=== PATIENT | female | born 1995 ===

== ENCOUNTER 2017-12-31 11:04 | Emergency (ER) | payer OTHER ==
[2017-12-31 11:43] VITALS: BMI 39.8
--- NOTE | 2017-12-31 14:47 | OBHP ---
Datetime: 12/31/2017 11:49 IP Adm Impression: , intrauterine IP Admit Plan: Observation/Evaluation Admit Comment, IP Provider: 22yo at 35wks - Decreased Movements stable and afebrile (+) movements- pt reassured BPP 8/8 NST FLORY Has f/u appt on 01/12/18 with clinic kick count instructions given DC home FGagandeep Hager D.OGagandeep Pelvic Type - PN: Adequate Extremities - PN: Normal Abdomen - PN: Normal Back - PN: Normal Breast - PN: Normal Lungs - PN: Normal Heart - PN: Normal Thyroid - PN: Normal Neurologic - PN: Normal HEENT - PN: Normal General - PN: Normal FHR - Baseline A Provider: 140 Comments, ACOG Physical Exam: Abd: soft, non-tender Pelvic: deferred EGA AdmitDate IP: 35.0 Vital Signs Provider: Reviewed; Within Normal Limits Vital Signs Provider Details: Grossly WNL, Tachy during encounter at 115bpm IP Chief Complaint: Decreased movement NICHD Variability Prov Fetus A: Moderate 6-25bpm NICHD Accel Fetus A IP Provider: 15X15 FHR Category Provider Fetus A: Category I NICHD Decel Fetus A IP Provider: None Genitourinary Exam: Normal DTRs - PN: Normal
--- NOTE | 2017-12-31 14:50 | US ---
Date of service: 12/31/2017 PROCEDURE: OB Pelvic Ultrasound HISTORY: Chief complaint of Decreased movement COMPARISON: None available. FINDINGS: UTERUS: Single Live intrauterine fetus in cephalic presentation. BPD: 9.34 cm corresponding to 38 weeks and 0 day of gestational age. HC: 33.26 cm corresponding to 38 weeks and 0 day of gestational age. AC: 32.38 cm corresponding to 36 weeks and 2 days of gestational age. FL: 7.14 cm corresponding to 36 weeks and 4 days of gestational age. Gestational sac diameter equivalent to wks/days gestation age (Ultrasound estimated): 37 weeks and 2 days Date of delivery (Ultrasound estimated) : 01/19/2018 Heart rate: 142 bpm. Paula-gestational hemorrhage: None. Placenta is fundal and anterior. CERVIX: Long and closed. Cervical length measures 3.1 cm. RIGHT OVARY: Not visualized. LEFT OVARY: Not visualized. FREE FLUID: None. OTHER FINDINGS: Biophysical profile score: breathin body movements: 2 Tone: 2 Amniotic Fluid: 2 Total score: 8/8 IMPRESSION: 1. Single live intrauterine fetus in cephalic presentation with mean gestational age of 37 weeks and 2 days. The estimated date of delivery by ultrasound is 01/19/2018. Placenta is fundal and anterior. Cervix is closed. Please note this is a limited OB ultrasound performed on an emergent basis. Clinical follow-up is advised. 2. Biophysical profile score is 8/8 and within normal limits.
--- NOTE | 2017-12-31 14:52 | OBDCSUM ---
Datetime: 12/31/2017 14:28 Discharged to, Provider: Home Follow up at, Provider: [facility] Disch Instr Activity: Normal activity Disch Instr Diet: Regular Discharge Instructions, Provider: Routine instructions given Discharge Time: 12/31/2017 14:29 Follow up in weeks, Provider: 01/12/2018 Disch Referrals: None Contraception discussed, Prov: No Discharge Comment, Provider: Pt presented to L_D for decreased movements. On assessment, Pt be jason to feel movements. BPP 09/29 NST FLORY. kick count instructions given. Pt to f/u with sc heduled clinic appt 01/12. Discharge Diagnosis Prov Other: decreased movements- resolved
--- NOTE | 2017-12-31 14:55 | OBHP ---
Datetime: 12/31/2017 11:49 Admit Comment, IP Provider: 22yo at 35wks EDC: 02/04/18 presents for decreased FM x 1 day. Pt s tates she now feels the baby moving. (-) LOF (-) VB (-) CTX PMHx: denies PSHX: denies ALL: NKDA Meds: PNV SHX: denies alcohol, tobacco, illicit drug use FHX: father- DM SVE: deferred EFM: 140s, moderate variability (+) accels (-) decels TOCO: quiet A/P: 22yo at 35wks- Decreased movements 1) Pt reassured- feeling baby move at this time 2) BPP/NST in progress 3) FKK instructions given 4) Continue to monitor
[2017-12-31 18:54] VITALS: BP 127/79; PULSE 116; RESP 20; TEMP 99; O2SAT 98
== END 2017-12-31 14:40 | disposition home or self-care (01) ==
LOC: C.EROB 11:04
DX: O36.8130 Decreased fetal movements, third trimester, not applicable or unspecified (principal); Z3A.35 35 weeks gestation of pregnancy

== ENCOUNTER 2018-02-02 07:06 | Inpatient (IN) | payer OTHER ==
[2018-02-02 08:31] VITALS: BMI 33.3
[2018-02-02 08:55] LABS: SQUAMOUS EPITHIAL 36 /hpf (0-5); URINE BACTERIA OCC (<OCC); URINE BILIRUBIN NEGATIVE (NEGATIVE); URINE BLOOD 3+ (NEGATIVE); URINE CLARITY Hazy (Clear); URINE COLOR Amber (YELLOW); URINE GLUCOSE (UA) NORMAL (Normal); URINE LEUKOCYTE ESTERASE 2+ Leu/uL (Negative); URINE PROTEIN 2+ mg/dL (NEGATIVE)
[2018-02-02 10:06] LABS: BASO % 0.5 % (0.0-2.0); EOS # 0.1 K/uL (0.0-0.7); EOS % 1.2 % (0.0-4.0); HEMOGLOBIN 11.4 g/dL (11.0-16.0); LYMPH # 1.5 K/uL (1.0-4.3); LYMPH % 16.5 % (20.0-40.0); MEAN CELL VOLUME 93.9 fL (81.0-99.0); MEAN CORPUSCULAR HEMOGLOBIN 31.3 pg (27.0-31.0); MEAN CORPUSCULAR HGB CONC 33.4 g/dL (33.0-37.0); MEAN PLATELET VOLUME 9.8 fL (7.2-11.7); MONO % 10.8 % (0.0-10.0); NEUT # 6.3 K/uL (1.8-7.0); RBC 3.65 Mil/uL (3.80-5.20); RED CELL DISTRIBUTION WIDTH 13.9 % (11.5-14.5); WHITE BLOOD COUNT 8.9 K/uL (4.8-10.8)
[2018-02-02 10:24] LABS: ALB/GLOB RATIO 1.1 (1.0-2.1); ALBUMIN 3.7 g/dL (3.5-5.0); ALT/SGPT 14 U/L (9-52); AST/SGOT 20 U/L (14-36); BLOOD UREA NITROGEN 6 mg/dL (7-17); CALCIUM 8.9 mg/dl (8.6-10.4); GFR NON-AFRICAN AMERICAN > 60; URIC ACID 4.5 mg/dL (2.2-7.5)
[2018-02-02 10:56] LABS: HEPATITIS B SURFACE AG Negative (NEGATIVE)
--- NOTE | 2018-02-02 13:08 | OBADHP ---
Datetime: 02/02/2018 10:40 Admit Comment, IP Provider: 22 year old female at 39.4 dated via LMP on 05/02/17 with ALYSSA of who presents to [facility] for contractions every 6-7 minutes that began at 1 am associated with hermelindo r and blood tinged discharge. Patient reports adequate movement. Denies any additional vaginal bleeding. Denies fever, chills, nausea, vomiting, change in vision, upper abdominal pain, and hand sw elling. She does admit to swelling in her nose throughout . 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 Denies hx of STDs, fibroids or cysts. Last coitus was on 04/24 03/11. PMHx: Denies PSHx: Denies Medications: PNV Allergies: NKDA Family Hx: Mother: 48, living, no PMHx; Father- 69, living, hx of DM. No family hx of breast, cerv ical, uterine or ovarian cancer. Social Hx: Patient denies tobacco, alcohol and drug use during . 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 Lives with parents and sister. She is in a relationship with the ba by's father, however he lives in [facility] Assessment and Plan: -Nitrazine positive/ SROM -Gestational Hypertension -Admit to unit -Admission and PIH Labs -Initiate labor Augmentation -Start fluids -Misoprostol 50mcg PO Q4H -Anticipate vaginal delivery Case discussed with Dr. Burnette. An Velázquez, PGY-1. Extremities - PN: Normal Abdomen - PN: Normal Breast - PN: Not Done Lungs - PN: Normal Heart - PN: Normal Neurologic - PN: Normal HEENT - PN: Normal General - PN: Normal FHR - Baseline A Provider: 140 Amniotic Fluid Color, Provider: Clear Membranes, Provider: Ruptured Contraction Comments Provider: yes Comments, ACOG Physical Exam: Abdomen: Gravid, non-tender, normal bowel sounds. Uterine fundus is at 38 cm Gestation - Est Wks by US: 39.4 Nitrazine Provider: Positive IP Hx Assessment: records available and reviewed Vital Signs Provider: Reviewed Vital Signs Provider Details: BP: 138/86 IP Chief Complaint: Uterine contractions; Suspected ruptured membranes NICHD Variability Prov Fetus A: Moderate 6-25bpm NICHD Accel Fetus A IP Provider: 15X15 FHR Category Provider Fetus A: Category I NICHD Decel Fetus A IP Provider: None Dilatation, Provider: 1 Effacement, Provider: 60 Station, Provider: -3 EGA AdmitDate IP: 39.4 IP Adm Impression: Term, intrauterine ; Ruptured Membranes IP Admit Plan: Admit to unit; Initiate labor augmentation protocol Datetime: 12/31/2017 11:49 Pelvic Type - PN: Adequate Back - PN: Normal Thyroid - PN: Normal Genitourinary Exam: Normal DTRs - PN: Normal
[2018-02-02] MEDS ORDERED: Bupivacaine HCl/FentaNYL Cit 100 ML EPI ONE (14:05)
--- NOTE | 2018-02-02 15:24 | OBPN ---
Datetime: 02/02/2018 14:00 IP Progress Impression: Normal progression of labor IP Informed Consent Obtain: Vaginal Delivery IP Procedures: Sterile Vag Exam IP Progress Plan: Continue present management Membranes, Provider: Ruptured Amniotic Fluid Color, Provider: Clear Contraction Comments Provider: yes, irregular FHR - Baseline A Provider: 140 Gestation - Est Wks by US: 39.4 IP Progress Note Comment: Patient uncomfortable, complaining of lower back pain and lower abdominal pain. Vaginal exam performed: 1-//-3 Requesting an Epidural. Assessment and Plan: B/P's midly elevated. NO BRUNO, BV or EP PIH labs all WNL P/C Ratio 0.037 and normal GHTN Stableg Anesthesia consult for epidural Continue present management. Anticipate a vaginal delivery Case discussed with Dr. Burnette. An Velázquez, PGY-1. Vital Signs Provider: Reviewed Vital Signs Provider Details: BP 143/80 and patient asymptomatic NICHD Accel Fetus A IP Provider: 15X15 FHR Category Provider Fetus A: Category I NICHD Variability Prov Fetus A: Moderate 6-25bpm Dilatation, Provider: 1-2 Effacement, Provider: 70 Station, Provider: -3 NICHD Decel Fetus A IP Provider: None Datetime: 02/02/2018 10:40 Nitrazine Provider: Positive
[2018-02-02] MEDS ORDERED: Oxytocin 30 UNIT 30 UNITS/500 ML BAG IV ONE (16:58)
[2018-02-02] MEDS ORDERED: Oxytocin 30 UNIT 30 UNITS/500 ML BAG IV SCH (17:30)
[2018-02-02] MEDS ORDERED: Oxycodone/Acetaminophen 5/325 mg Tab PO PRN ×2 (22:54)
[2018-02-03 08:52] LABS: BASO % 0.3 % (0.0-2.0); EOS # 0.1 K/uL (0.0-0.7); EOS % 0.5 % (0.0-4.0); HEMOGLOBIN 10.1 g/dL (11.0-16.0); LYMPH # 1.7 K/uL (1.0-4.3); LYMPH % 12.3 % (20.0-40.0); MEAN CELL VOLUME 93.8 fL (81.0-99.0); MEAN CORPUSCULAR HGB CONC 33.1 g/dL (33.0-37.0); MEAN PLATELET VOLUME 9.4 fL (7.2-11.7); MONO # 1.1 K/uL (0.0-0.8); MONO % 7.9 % (0.0-10.0); NEUT # 11.2 K/uL (1.8-7.0); RBC 3.25 Mil/uL (3.80-5.20); RED CELL DISTRIBUTION WIDTH 14.2 % (11.5-14.5)
[2018-02-03 08:53] LABS: WHITE BLOOD COUNT 14.1 K/uL (4.8-10.8)
--- NOTE | 2018-02-03 17:23 | OBPPN ---
Datetime: 02/03/2018 07:32 PP Pain Prov: Within normal limits PP Nausea Prov: Denies PP Flatus Prov: No PP BM Prov: No PP Breasts Prov: Not Done PP Heart Prov: Normal PP Lungs Prov: Normal PP Abdomen/Uterus Prov: Normal PP Lochia Prov: Normal PP Vulva/Perineum Prov: Not Done PP CVA Tenderness Prov: Not Done PP Extremities Prov: Normal PP C/S Incision Prov: Not Applicable PP Progress Prov: Normal PP Comments Phys Exam Prov: Abdomen: soft, non-tender, uterine fundus 2 finger breadths above umbili cus PP Impression Prov: Normal progression PP Plan Prov: Continue present management PP Progress Note Prov: 22 year old female PPD#1 s/p NVD. [facility]. She states she feels well and complains only of mild soreness to epidural area and mild lower abdominal cramping. She has not taken pain medication. She reports vaginal bleeding. She is solely br east feeding. She is walking and voiding without issues. Denies flatus and bowel movement. Patient de nies fever, chills, nausea, vomiting, generalized swelling, upper abdominal pain, and change in visio n. Assessment and Plan: 22 year old female PPD#1 s/p NVD Hx of gestational HTN, BP 128-121/70-79, stable Motrin for pain management as needed Continue PNV Continue regular diet Encourage hydration and ambulation for constipation Case discussed with Dr. Ying. An Velázquez, PGY-1. Attending Note: patient seen, evaluated and examined by me with the Resident. I agree with the abo ve. - PPD#1 H/H 10.1/30.5. Patient is asymptomatic and hemodynamically stable. Will start iron supplem entaiton. Otherwise, clinically stable. Plan: 1) as above. 2) Anticipate discharge home 02/04/18 IP PP Procedures: None Vital Signs Provider PP: Reviewed; Within Normal Limits
[2018-02-04 09:26] VITALS: BP 119/79; PULSE 88; RESP 18; TEMP 97.8; O2SAT 98
[2018-02-04] MEDS ORDERED: Influenza Vaccine 60 MCG/0.5 ML SYR (3 yr & up) IM ONE (10:00)
--- NOTE | 2018-02-04 15:32 | OBPPN ---
Datetime: 02/04/2018 07:46 PP Pain Prov: Within normal limits PP Nausea Prov: Denies PP Flatus Prov: Yes PP BM Prov: Yes PP Breasts Prov: Not Done PP Heart Prov: Normal PP Lungs Prov: Normal PP Abdomen/Uterus Prov: Normal PP Lochia Prov: Normal PP Vulva/Perineum Prov: Not Done PP CVA Tenderness Prov: Not Done PP Extremities Prov: Normal PP C/S Incision Prov: Not Applicable PP Progress Prov: Normal PP Comments Phys Exam Prov: Abdomen: Soft, non-tender, fundus firm at 2 finger breadths below umbili cus PP Impression Prov: Normal progression PP Plan Prov: Discharge PP Progress Note Prov: Patient PPD#2 s/p NVD. Patient was seen and examined at bedside. Patient stat es she feels well and denies pain or any aditional complaints. She reports minimal vaginal bleeding. She is solely breast feeding. She is walking and voiding without issues. She had bowel movement. Guadalupe ent denies fever, chills, nausea, vomiting, generalized swelling, upper abdominal pain, and change in vision. Assessment and Plan: 22 year old female PPD#2 s/p NVD Patient stable for discharge Blood type O+ Hx of gestational HTN, BP 128-131/70-84, stable Continue Ferrous sulfate, H/H 10.1/30.5 PPD1, asymptomatic. Pt has medication at home Motrin for pain management as needed Continue PNV for 3-4 months Drink Plenty of water Nothing in the vagina for 6-8 weeks Follow up with Ob-volunteer services director in 6 weeks or PRN Discharged home with instructions and Rx for Motrin, PNV Case discussed with Dr. Burnette. An Velázquez, PGY-1. IP PP Procedures: None Vital Signs Provider PP: Reviewed; Within Normal Limits
== END 2018-02-04 14:45 | disposition home or self-care (01) | DRG 372 ==
LOC: C.EROB 07:06 → C.4D 09:16 → C.4M 02-03 00:30
PROVIDERS: ADMIT Obstetrics & Gynecology; ATTEND Obstetrics & Gynecology
PROC: 10E0XZZ Delivery of Products of Conception, External Approach (ICD-10-PCS; principal; 2018-02-02)
DX: O13.4 Gestational [pregnancy-induced] hypertension without significant proteinuria, complicating childbirth (principal); Z3A.39 39 weeks gestation of pregnancy; Z37.0 Single live birth